=== PATIENT | male | born 1975 | race Caucasian/White ===

== ENCOUNTER 2017-12-04 04:04 | Emergency (ER) | payer MEDICAID, SELFPAY ==
[2017-12-04 04:05] VITALS: BP 157/116; PULSE 121; RESP 30; O2SAT 95; BMI 29.8
--- NOTE | 2017-12-04 04:43 | PC.NURSE ---
POISON CONTROL NOTIFIED AT 0410. DR. MARTINEZ NOTIFIED TO GIVE FLUIDS, BENZOS, AND ZOFRAN
--- NOTE | 2017-12-04 04:53 | PC.NURSE ---
POISON CONTROL CALLED, THEY ADVISED NAUSEA MEDS FLUIDS AND BENZOS IF NEEDED, PT IS IN FULL BLOWN WITHDRAWAL.
--- NOTE | 2017-12-04 05:17 | HMH.EDOD ---
ED Disposition Clinical Impression: [id number] adverse reaction to medication Qualifiers: Encounter type: initial encounter Qualified Code(s): T88.7XXA - Unspecified adverse effect of drug or medicament, initial encounter Disposition: Home, Self-Care Condition on Discharge: Good Instructions: DI for Drug or Alcohol Withdrawal Additional Instructions: call your dr this am to discuss meds Referrals: Allan Martines MD [Primary Care Provider] - - Critical Care Critical Care Time: No Attestation: On 12/04/17, the high probability of a clinically significant, sudden or life threatening deterioration of the following system(s) required my full and direct attention, intervention and personal management. The time I documented below is in addition to time spent performing reported procedures but includes the following listed in this critical care notation. Medical Decision Making - Medical Records Medical records reviewed: Yes: I reviewed the patient's medical records. Vital Signs: 12/04/17 04:05 Pulse Rate [Brachial] 121 H Respiratory Rate 30 H Blood Pressure [Right Arm] 157/116 Blood Pressure Mean [Right Arm] 129 02 Sat by Pulse Oximetry 95 - Lab Data Lab results reviewed: Yes: I reviewed the patient's lab results. Lab Results 12/04/17 05:55: Urine Opiates Screen Positive H, Ur Barbituates Screen Negative, Ur Phencyclidine Scrn Negative, Ur Amphetamines Screen Negative, U Methamphetamines Scrn Negative, U Benzodiazepines Scrn Negative, Urine Cocaine Screen Negative, U Marijuana (THC) Screen Positive H Orders (Tests/Meds): ED MEDICATIONS Discontinued Medications Generic Name Dose Route Start Last Admin Trade Name Freq PRN Reason Stop Dose Admin Lorazepam 0.5 mg 12/04/17 06:09 12/04/17 06:15 Ativan 2mg/Ml Vial IV 12/04/17 06:10 0.5 mg ONCE ONE Administration Promethazine HCl 12.5 mg 12/04/17 05:16 12/04/17 05:19 Phenergan 25mg/Ml 1ml Vial IV 12/04/17 05:17 12.5 mg ONCE ONE Administration Sodium Chloride 25 ml 12/04/17 05:16 Sod Chloride 0.9% 25ml Bag IV 12/04/17 05:17 ONCE ONE Sodium Chloride 2 ml 12/04/17 06:09 Saline Flush 10ml Syringe IV 01/03/18 06:08 NEEDED PRN to Dilute Lorazepam inj - Blaise Inquiry Pt receiving controlled substance: No Overdose HPI - General Chief Complaint: Nausea/Vomiting/Diarrhea Stated Complaint: WITHDRAWAL Time Seen by Provider: 12/04/17 05:17 Mode of Arrival: Ambulatory Source of Information: Patient, Significant Other, Relative, Medical Record Limitations: No Limitations Description of Symptoms (Recalled from ER Triage Doc. by RN): OPIATE WITHDRAWL AFTER TAKINGNALTREXONE AT 0300, THEN TOOK XANAX 1.5 MG AT 0330 - History of Present Illness HPI Narrative: pt with use of opiate and then narcan tab and now agitated with vomiting MD complaint: accidental overdose Onset (ago): hour(s) Timing confirmed by: family member Intent: other (no overdose but has used opiate ) How Overdose Was Discovered: family/friend present at time Context: Intentional Overdose: drug/ETOH problems Context: Accidental Overdose: medication error Associated symptoms: nausea/vomiting Treatments Prior to Arrival: narcan - Related Data Allergies Allergy/AdvReac Type Severity Reaction Status Date / Time No Known Allergies Allergy Unverified 11/12/17 14:27 [facility] History I have reviewed the patient's past medical history: Yes - *Social History Smoking Status: Current every day smoker Alcohol Intake: current Substance Use Type: heroin - Psychiatric History Expresses thoughts of harming self/others: None Suicide Plan Description: No Plan ROS Obtained: Yes All systems reviewed & no additional complaints - Constitutional Constitutional: Denies fever(s) - Eyes Eyes: Denies change in vision - ENT Ears, Nose, Mouth, and Throat: Denies throat swelling - Cardiovascular Cardiovascular: Denies [place]
[2017-12-04 06:21] LABS: Amphetamine/Metha Screen,Urine Negative ng/mL (<1000); Barbiturates Screen,Urine Negative ng/mL (<200); Benzodiazepines Screen,Urine Negative ng/mL (200); Cannabinoid Screen,Urine Positive ng/mL (<50); Cocaine Screen,Urine Negative ng/g (<300); Methadone Screen,Urine Negative ng/mL (<300); Opiate Screen,Urine Positive ng/mL (<300); Phencyclidine Screen,Urine Negative ng/mL (<25)
== END 2017-12-04 06:32 | disposition home or self-care (01) ==
PROVIDERS: Emergency Provider Emergency Medicine; Family Provider Emergency Medicine; PCP Family Medicine
DX: F11.23 Opioid dependence with withdrawal (principal); B19.20 Unspecified viral hepatitis C without hepatic coma; G25.81 Restless legs syndrome; E55.9 Vitamin D deficiency, unspecified; F12.10 Cannabis abuse, uncomplicated; F17.210 Nicotine dependence, cigarettes, uncomplicated
CPT/HCPCS: 80305; 96374; 96375; 99283

== ENCOUNTER → 2018-01-09 14:48 | Outpatient (REF) | payer MEDICAID, SELFPAY ==
--- NOTE | 2018-01-09 15:23 | XR_ITS ---
XR chest 2V HISTORY: ITS.REASON: rales ORDERING PHYSICIAN: JESSE Vogt PATIENT AGE: 42 years COMPARISON: None available FINDINGS: The cardiomediastinal silhouette and pulmonary vascularity are within normal limits. The lungs are clear without infiltrates, suspicious nodules, or pleural effusions. There is a calcified granuloma in the left lower lobe. No acute bony abnormalities. IMPRESSION: No acute finding
[2018-01-09 18:11] LABS: Basophils # 0.1 K/mm3 (0-0.2); Basophils % 0.6 % (0.1-2.0); Eosinophils # 0.3 K/mm3 (0.0-0.4); Eosinophils % 4.1 % (0.1-12.0); Hematocrit 44.1 % (42.0-52.0); Hemoglobin 15.3 g/dL (14.1-18.0); Lymphocytes # 2.6 K/mm3 (0.7-4.5); Lymphocytes % 34.1 K/mm3 (10-50); Mean Corpuscular HGB Conc 34.6 g/dL (31.8-35.4); Mean Corpuscular Hemoglobin 28.6 pg (27.0-31.2); Mean Corpuscular Volume 82.6 fl (80-94); Mean Platelet Volume 8.2 fl (7.4-10.4); Monocytes # 0.4 K/mm3 (0.1-1.0); Monocytes % 5.2 % (1.7-9.3); Neutrophils # 4.2 K/mm3 (1.8-7.8); Platelet Count 254 K/mm3 (142-424); Red Blood Count 5.34 M/mm3 (4.60-6.20); Red Cell Distribution Width 13.4 % (11.5-17.5); White Blood Count 7.5 K/mm3 (4.8-10.8)
[2018-01-09 18:36] LABS: Alanine Aminotransferase 44 U/L (12-78); Albumin Level 4.1 gm/dL (3.4-5.0); Albumin/Globulin Ratio 1.2 (1.1-1.8); Alkaline Phosphatase 115 U/L (46-116); Anion Gap 14.3 mEq/L (5-15); Aspartate Amino Transferase 26 U/L (15-37); Bilirubin,Total 0.5 mg/dL (0.2-1.0); Blood Urea Nitrogen 10 mg/dL (7-18); Calcium 9.1 mg/dL (8.5-10.1); Carbon Dioxide 29 mmol/L (21.0-32.0); Chloride 104 mmol/L (98-107); Chol/HDL Ratio 2.9 (1-3.5); Cholesterol 119 mg/dL (140-200); Creatinine,Serum 0.92 mg/dL (0.70-1.30); Estimated Glomerular Filt Rate 90 ml/min (>60); GFR (African American) 109 ML/MIN (>60); Globulin 3.3 gm/dl (1.3-3.2); Glucose 115 mg/dL (74-106); HDL Cholesterol 41 mg/dL (27-67); LDL Cholesterol 58 mg/dL (0-130); Potassium 4.3 mmoL/L (3.5-5.1); Sodium 143 mmol/L (136-145); T4 (Thyroxine) 14.2 ug/dl (4.7-13.3); Thyroid Stimulating Hormone 1.54 uIU/ml (0.358-3.740); Total Protein,Serum 7.4 gm/dL (6.4-8.2); Triglycerides 98 mg/dL (30-200); VLDL Cholesterol 20 mg/dL (0-40)
[2018-01-11 19:04] LABS: Vitamin D 25 Hydroxy 27.8 ng/mL (30.0-100.0)
[2018-01-11 19:05] LABS: HIV Screen 4th Generation wRfx Non Reactive (Non Reactive)
== END ==
LOC: LAB 14:48
PROVIDERS: PCP Physician Assistant; Visit Provider Physician Assistant
DX: R09.89 Other specified symptoms and signs involving the circulatory and respiratory systems (principal); D69.6 Thrombocytopenia, unspecified
CPT/HCPCS: 71046; 80053; 80061; 82652; 84436; 84443; 85025; 86703; 87522; G0432

== ENCOUNTER 2020-04-01 15:51 | Emergency (ER) | payer OTHER, SELFPAY ==
[2020-04-01 15:57] VITALS: BP 147/87; PULSE 115; RESP 22; TEMP 36.8; O2SAT 100; BMI 28.7
--- NOTE | 2020-04-01 15:58 | ECG_ITS ---
APPROVED REPORT Exam: Resting ECG HR:115 bpm ECG Measurements Heart Rate 115 AXES KS 130 P 65 QRSd 82 QRS 75 QT 322 T 63 QTc 445 <Conclusion> Sinus tachycardia Otherwise normal ECG Electronically signed by : Gabino Niño, 04/02/2020 22:27:04
--- NOTE | 2020-04-01 16:07 | CT_ITS ---
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 All CT scans at the facility use one or more dose reduction, viz: automated exposure control, ma/kV adjustment per patient size (including targeted exams where dose is matched to indication, i.e. head), or iterative reconstruction technique. FINDINGS: Normal alignment. No fracture or dislocation. There is mild thoracic spondylosis with mild multilevel degenerative disc disease and endplate osteophytes. No lytic or blastic change. There is tree in bud pattern in the left lower lobe suggesting mild pneumonia. There are calcified mediastinal and hilar lymph nodes. IMPRESSION: No acute fracture. Tree in bud pattern in the left lower lobe suggesting mild pneumonia Dictated by: Caleb Mancini MD 04/01/2020 18:06 Electronically signed by Caleb Mancini MD in [place] 04/01/2020 18:06
--- NOTE | 2020-04-01 16:07 | CT_ITS ---
PROCEDURE: CT LUMBAR SPINE WO CON CLINICAL HISTORY: INJURED WHILE WORKING ON VEHICLE Severe back pain after lifting COMPARISON: LS5 LUMB SPINE 5 VIEWS from 12/30/2012 TECHNIQUE: Axial images obtained with sagittal and coronal reformats. All CT scans at the facility use one or more dose reduction, viz: automated exposure control, ma/kV adjustment per patient size (including targeted exams where dose is matched to indication, i.e. head), or iterative reconstruction technique. FINDINGS: There is normal alignment. No acute fracture or dislocation evident. Marginal osteophytes are present. The disc spaces are well preserved. There is minimal bulging disc at L3-L4, L4-5, and L5-S1 A sclerotic area is present in the left ilium in the super acetabular region and could be due to a bone island. IMPRESSION: 1. No acute fracture. 2. Mild spondylosis. 3. Sclerotic lesion of the left ilium which measures 2 cm. This is nonspecific and could be due to bone island. One cannot exclude the possibility of a blastic metastatic focus. Dictated by: Caleb Mancini MD 04/01/2020 18:10 Electronically signed by Caleb Mancini MD in [place] 04/01/2020 18:10
--- NOTE | 2020-04-01 17:39 | HMH.EDBACK ---
ED Disposition Clinical Impression: Lumbar radiculopathy Disposition: Home, Self-Care Condition on Discharge: Good Instructions: DI for Low Back Pain Referrals: Den Vaughn MD [Primary Care Provider] - - Critical Care Critical Care Time: No Attestation: On 04/01/20, the high probability of a clinically significant, sudden or life threatening deterioration of the following system(s) required my full and direct attention, intervention and personal management. The time I documented below is in addition to time spent performing reported procedures but includes the following listed in this critical care notation. Medical Decision Making - Medical Records Medical records reviewed: Yes: I reviewed the patient's medical records. - Blaise Inquiry Pt receiving controlled substance: No Vital Signs: 04/01/20 15:57 Temperature 98.3 F Temperature Source Oral Pulse Rate [Right Radial] 115 H Respiratory Rate 22 Blood Pressure [Right Arm] 147/87 H Blood Pressure Mean [Right Arm] 107 Blood Pressure Source [Right Arm] Automatic Cuff Blood Pressure Position [Right Arm] Sitting 02 Sat by Pulse Oximetry 100 Oxygen Delivery Method Room Air - Lab Data Lab results reviewed: Yes: I reviewed the patient's lab results. Orders (Tests/Meds): ED MEDICATIONS Discontinued Medications Generic Name Dose Route Start Last Admin Trade Name Freq PRN Reason Stop Dose Admin Ketorolac Tromethamine 30 mg 04/01/20 16:08 04/01/20 16:13 Toradol 30mg/Ml Vial IV 04/01/20 16:09 30 mg ONCE ONE Administration ORDERS Category Date Time Status CT lumbar spine wo con Stat Cat Scan 04/01/20 16:[address] thoracic spine wo con Stat Cat Scan 04/01/20 16:07 Taken - CT Data CT Scan: T-Spine, L-Spine Time Received: 17:50 Preliminary Findings: Normal/NAD Back Pain HPI - General Chief Complaint: Back Pain/Injury Stated Complaint: back and chest pain\ Time Seen by Provider: 04/01/20 17:40 Mode of Arrival: Ambulatory Source of Information: Patient Limitations: No Limitations Description of Symptoms (Recalled from ER Triage Doc. 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 - History of Present Illness MD Complaint: back pain Onset (ago): day(s) Duration: constant Similar Symptoms Previously: Yes Location: lumbar spine, thoracic spine Severity: moderate Quality: sharp, other Radiation: none Severity scale (1-10): 5 Relieving factors: immobilization, sitting upright Exacerbating factors: movement Context: while lifting Associated symptoms: denies other symptoms - Related Data Previous Rx's Medication Instructions Recorded Mupirocin [Bactroban 2% Ointment 1 applicatio TP TID #1 tube 12/24/19 22gm tube] Sulfamethoxazole/Trimethoprim 1 each PO BID 10 Days #20 tab 12/24/19 [Bactrim DS tablet] Allergies Allergy/AdvReac Type Severity Reaction Status Date / Time No Known Allergies Allergy Verified 03/17/18 09:25 [facility] History - Hepatitis A Screen Drug use history?: Yes High risk sexual behaviors?: No History of sexually transmitted infection?: No Currently employed?: No Childcare worker?: No Do you have indoor plumbing?: Yes Do you have electricity?: Yes Attestation statement:: This patient has been screened for Hepatitis A risk factors. I have reviewed the patient's past medical history: Yes Medical History: Reports:: Anxiety, Depression, Hepatitis Denies:: Diabetes Mellitus Type 1, Diabetes Mellitus Type 2 Other Medical History: Reports: Other Other Surgeries: Yes: Other Amputation: No Fractures: Yes Comment: Steel plate placed in rt hand. - Social History Smoking Status: Current every day smoker Tobacco Type: cigarettes # Packs/Day (cigarettes): 1 Alcohol Intake: current Alcohol
[2020-04-01 18:02] VITALS: BP 131/78; PULSE 79; RESP 18; TEMP 36.9; O2SAT 98
== END 2020-04-01 18:07 | disposition home or self-care (01) ==
PROVIDERS: Emergency Provider Family Medicine; PCP Emergency Medicine
DX: M54.16 Radiculopathy, lumbar region (principal); X50.0XXA Overexertion from strenuous movement or load, initial encounter; F17.210 Nicotine dependence, cigarettes, uncomplicated
CPT/HCPCS: 72128; 72131; 93005; 96374; 99283

== ENCOUNTER 2020-04-27 20:45 | Emergency (ER) | payer OTHER, SELFPAY ==
[2020-04-27 20:48] VITALS: BP 157/100; PULSE 114; RESP 16; TEMP 37.1; O2SAT 100; BMI 27.8
--- NOTE | 2020-04-27 21:03 | HMH.EDUTC ---
[facility] Disposition Clinical Impression: Screening for STDs (sexually transmitted diseases), Lesion of penis Disposition: Home, Self-Care Condition on Discharge: Good Instructions: The Facts About Genital Herpes, How to Detect and Treat STDs, Gonorrhea, Genital Herpes, DI for Gonorrhea, DI for Chlamydia, DI for Syphilis Additional Instructions: NO SEXUAL ACTIVITY UNTIL YOUR TEST RESULTS ARE BACK AND EITHER NEGATIVE OR YOU HAVE BEEN TREATED Follow up with Dr Hernandez as advised in [facility] today Call office tomorrow and make appointment Follow up with family doctor for further treatment and evaluation Return if needed Straight to ER if any life threatening symptoms Keep area clean and dry and make sure to wash your hands well if you touch the lesions as these are contagious Prescriptions: Acyclovir [Zovirax 400mg tablet] 400 mg PO TID 10 Days #30 tab Transmission Status: Pending to [facility] Referrals: Levar Hernandez MD [Staff Physician] - As needed (Call office tomorrow for appointment) Den Vaughn MD [Primary Care Provider] - As needed Time of Disposition: 21:41 Medical Decision Making - Blaise Inquiry Pt receiving controlled substance: No Blaise was queried for this patient: No Vital Signs: 04/27/20 20:48 Temperature 98.7 F Temperature Source Oral Pulse Rate [Right Brachial] 114 H Respiratory Rate 16 Blood Pressure [Right Arm] 157/100 H Blood Pressure Mean [Right Arm] 119 Blood Pressure Source [Right Arm] Automatic Cuff Blood Pressure Position [Right Arm] Sitting 02 Sat by Pulse Oximetry 100 Oxygen Delivery Method Room Air - Lab Data Lab Results 04/27/20 21:15: WBC 8.0, RBC 4.98, Hgb 14.3, Hct 41.1 L, MCV 82.6, MCH 28.8, MCHC 34.8, RDW 13.9, Plt Count 278, MPV 7.6, Neut % (Auto) 58.5, Lymph % (Auto) 34.9, [place] % (Auto) 3.7, Eos % (Auto) 1.5, Baso % (Auto) 1.3, Neut # (Auto) 4.7, Lymph # (Auto) 2.8, [place] # (Auto) 0.3, Eos # (Auto) 0.1, Baso # (Auto) 0.1 Result diagrams: 04/27/20 21:15 Orders (Tests/Meds): ORDERS Category Date Time Status Complete Blood Count Auto Diff Stat Lab 04/27/20 21:15 Received Comprehensive Metabolic Panel Stat Lab 04/27/20 21:15 Received Medical Decision Narrative: Patient wanted to have STD testing and swabs to see if he has been exposed and infected with STD due to lesions on his penis Discussed patient with PCP Dr Vaughn and swabs of lesions obtained and patient tested for GC/Chlamydia, along with Syphilis and Herpes Will refer patient to Dr Hernandez for further evaluation and examination and follow up in office [facility] HPI - General Stated complaint: spot on body Time Seen by Provider: 04/27/20 21:03 Mode of Arrival: Ambulatory Source of Information: Patient Limitations: No Limitations Description of Symptoms (Recalled from Triage Doc. by RN): Pt advises he has open sores on his penis that he can't get to heal that have been there for about a month. Sores are open HEENT Symptoms (Recalled from RN notes): No Resp Symptoms (Recalled from RN notes): No Skin Symptoms (Recalled from RN notes): Yes (sores on penis) MS Symptoms (Recalled from RN notes): No Functional Status (Recalled from RN notes): na - History of Present Illness Provider Complaint: Paitent states that he has been having some sore like lesions on his penis for about a month that will heal and flake off State that he is unsure if he may have contracted a sexually transmitted disease States that the lesions has returned so he came in to get checked Denies fever, denies discharge from penis denies difficulty or painful urination State that he is but not sure if he may have contracted something from his partner - Related Data Previous Rx's Medication Instructions Recorded Mupirocin [Bactroban 2% Ointment 1 applicatio TP TID #1 tube 12/24/19 22gm tube] Sulfamethoxazole/Trimethoprim 1 each PO BID 10 Days #20 tab 12/24/19 [Bactrim DS tablet] Acyclovir [Zovirax 400mg tablet] 400
[2020-04-27 21:36] LABS: Basophils # 0.1 K/mm3 (0-0.2); Basophils % 1.3 % (0.1-2.0); Eosinophils # 0.1 K/mm3 (0.0-0.4); Eosinophils % 1.5 % (0.1-12.0); Hematocrit 41.1 % (42.0-52.0); Hemoglobin 14.3 g/dL (14.1-18.0); Lymphocytes # 2.8 K/mm3 (0.7-4.5); Lymphocytes % 34.9 % (10-50); Mean Corpuscular HGB Conc 34.8 g/dL (31.8-35.4); Mean Corpuscular Hemoglobin 28.8 pg (27.0-31.2); Mean Corpuscular Volume 82.6 fl (80-94); Mean Platelet Volume 7.6 fl (7.4-10.4); Monocytes # 0.3 K/mm3 (0.1-1.0); Monocytes % 3.7 % (1.7-9.3); Neutrophils # 4.7 K/mm3 (1.8-7.8); Neutrophils % 58.5 % (37.0-80.0); Platelet Count 278 K/mm3 (142-424); Red Blood Count 4.98 M/mm3 (4.60-6.20); Red Cell Distribution Width 13.9 % (11.5-17.5)
[2020-04-27 21:41] LABS: Chloride 109 mmol/L (98-107); Potassium 3.9 mmoL/L (3.5-5.1); Sodium 142 mmol/L (136-145)
[2020-04-27 21:43] LABS: Blood Urea Nitrogen 12 mg/dl (9-20); Creatinine Clearance Estimated 150 mL/min (50-200); Estimated Glomerular Filt Rate 105 ml/min (>60); GFR (African American) 126 ML/MIN (>60)
[2020-04-27 21:44] LABS: Alanine Aminotransferase 23 U/L (12-78); Albumin Level 3.9 g/dl (3.5-5.0); Albumin/Globulin Ratio 1.1 (1.1-1.8); Alkaline Phosphatase 125 U/L (38-126); Anion Gap 10.9 mEq/L (5-15); Aspartate Amino Transferase 27 U/L (17-59); Bilirubin,Total 0.6 mg/dl (0.2-1.3); Calcium 8.7 mg/dl (8.4-10.2); Carbon Dioxide 26 mmol/L (22.0-30.0); Globulin 3.4 g/dL (1.3-3.2); Glucose 141 mg/dl (74-100); Total Protein,Serum 7.3 g/dl (6.3-8.2)
[2020-04-27 21:48] VITALS: BP 148/78; PULSE 98; RESP 16; TEMP 36.8; O2SAT 98
[2020-04-30 13:52] LABS: Rapid Plasma Reagin Ab Titer 1:16 (NonRea<1:1)
[2020-04-30 18:52] LABS: Neisseria gonorrhoeae, NAA Negative (Negative)
== END 2020-04-27 21:49 | disposition home or self-care (01) ==
PROVIDERS: Emergency Provider Nurse Practitioner; PCP Emergency Medicine
DX: N48.9 Disorder of penis, unspecified (principal); Z11.3 Encounter for screening for infections with a predominantly sexual mode of transmission; F41.8 Other specified anxiety disorders; F17.210 Nicotine dependence, cigarettes, uncomplicated
CPT/HCPCS: 80053; 85025; 86592; 87252; 87491; 87591; 99202

== ENCOUNTER 2021-06-13 22:09 | Emergency (ER) | payer OTHER, SELFPAY ==
[2021-06-13 22:15] VITALS: BP 150/98; PULSE 84; RESP 24; TEMP 36.9; O2SAT 98; BMI 34.2
--- NOTE | 2021-06-13 22:20 | PC.NURSE ---
pd at bedside
--- NOTE | 2021-06-13 23:11 | HMH.EDMCLR ---
ED Disposition Clinical Impression: Medical clearance for incarceration, Heroin abuse Disposition: Home, Self-Care Condition on Discharge: Good Instructions: DI for Substance Use Disorder Additional Instructions: fluids and see pcp for follow up Referrals: Den Vaughn MD [Primary Care Provider] - - Critical Care Critical Care Time: No Attestation: On 06/13/21, the high probability of a clinically significant, sudden or life threatening deterioration of the following system(s) required my full and direct attention, intervention and personal management. The time I documented below is in addition to time spent performing reported procedures but includes the following listed in this critical care notation. Medical Decision Making - Medical Records Medical records reviewed: Yes: I reviewed the patient's medical records. - Blaise Inquiry Pt receiving controlled substance: No Vital Signs: 06/13/21 22:15 06/13/21 23:22 Temperature 98.4 F 98.1 F Temperature Source Oral Oral Pulse Rate 112 H Pulse Rate [Left Brachial] 84 Respiratory Rate 24 20 Blood Pressure 152/98 H Blood Pressure [Right Arm] 150/98 H Blood Pressure Mean [Right Arm] 115 Blood Pressure Source Automatic Cuff Blood Pressure Source [Right Arm] Automatic Cuff Blood Pressure Position Sitting Blood Pressure Position [Right Arm] Sitting 02 Sat by Pulse Oximetry 98 Oxygen Delivery Method Room Air Room Air - Lab Data Lab results reviewed: Yes: I reviewed the patient's lab results. Lab Results 06/13/21 22:26: SARS-CoV-2 (PCR) Not detected, Influenza A Untype (PCR) Not detected, Influenza Type B (PCR) Not detected Orders (Tests/Meds): ED MEDICATIONS Discontinued Medications Generic Name Dose Route Start Last Admin Trade Name Victor M PRN Reason Stop Dose Admin Ondansetron HCl 4 mg 06/13/21 22:58 06/13/21 23:11 Ondansetron 4mg Odt SL 06/13/21 22:59 4 mg ONCE ONE Administration Medical Decision Narrative: pt is stable at this time Medical Clearance HPI - General Chief complaint: Medical Clearance Stated complaint: medical clearance Time Seen by Provider: 06/13/21 22:45 Mode of Arrival: Ambulatory Source of Information: Patient, Medical Record Limitations: No Limitations Description of Symptoms (Recalled from ER Triage Doc. by RN): 2 gram/ day heroin user brought in for medical clearance by pd. states he used suboxone today. - History of Present Illness HPI Narrative: pt with reported suboxone and heroin daily use and was ok with police and has been nausea here but stable vital signs complaint: medical clearance requested Onset (ago): hour(s) Reason for Medical Clearance: other (drug use ) Place: home Alleged Intoxication: Yes Traumatic Symptoms: denies traumatic injury Associated Symptoms: nausea/vomiting Treatments Prior to Arrival: none Allergies/Adverse reactions: Allergies Allergy/AdvReac Type Severity Reaction Status Date / Time No Known Allergies Allergy Verified 06/13/21 22:53 [facility] History - Hepatitis A Screen Drug use history?: Yes High risk sexual behaviors?: No History of sexually transmitted infection?: No Currently employed?: No Childcare worker?: No Do you have indoor plumbing?: Yes Do you have electricity?: Yes Attestation statement:: This patient has been screened for Hepatitis A risk factors. I have reviewed the patient's past medical history: Yes ROS Obtained: Yes All systems reviewed & no additional complaints - Constitutional Constitutional: Denies fever(s) - Eyes Eyes: Denies change in vision - ENT Ears, Nose, Mouth, and Throat: Denies dizziness - Cardiovascular Cardiovascular: Denies chest pain, Denies dyspnea - Respiratory Respiratory: Denies dyspnea - Gastrointestinal Gastrointestingal: Reports: as per HPI, vomiting - Genitourinary Male Genitourinary: Denies hematuria - Musculoskeletal Musculoskeletal: Denies joint swellin
[2021-06-13 23:17] LABS: Coronavirus 19, PCR Not Detected (NotDetected); Influenza A, PCR Not Detected (NotDetected); Influenza B, PCR Not Detected (NotDetected)
--- NOTE | 2021-06-13 23:21 | PC.NURSE ---
pd notified of neg covid result
[2021-06-13 23:22] VITALS: BP 152/98; PULSE 112; RESP 20; TEMP 36.7; O2SAT 100
== END 2021-06-13 23:46 | disposition home or self-care (01) ==
PROVIDERS: Emergency Provider Emergency Medicine; PCP Emergency Medicine
DX: F11.10 Opioid abuse, uncomplicated (principal); R11.0 Nausea
CPT/HCPCS: 99283; U0003